=== PATIENT | female | born 1985 | race Caucasian/White ===

== ENCOUNTER 2016-11-02 11:37 | Emergency (ER) | payer BC ==
[2016-11-02 13:13] VITALS: BP 120/84
--- NOTE | 2016-11-02 13:38 | UC ---
Throat Pain/Nasal Alvin HPI - HPI Summary HPI Summary: SORE THROAT X 1 DAYS , + NASAL CONGESTION, COUGH , NO FEVER + BODY ACHES AND HEADACHES - History of Current Complaint Chief Complaint: UCRespiratory Stated Complaint: CONGESTION,HEADACHE Time Seen by Provider: 11/02/16 13:28 Hx Obtained From: Patient Hx Last Menstrual Period: spotting yesterday ?: No Onset/Duration: Gradual Onset, Lasting Days - 1, Still Present Severity: Moderate Cough: Nonproductive Associated Signs & Symptoms: Positive: Nasal Discharge. Negative: Sinus Discomfort, Fever, Rash - Allergies/Home Medications Allergies/Adverse Reactions: Allergies Allergy/AdvReac Type Severity Reaction Status Date / Time No Known Allergies Allergy Verified 11/02/16 13:13 Home Medications: Home Medications Acetaminophen-Guaifenesin [Comtrex Deep Chest Cold M] 1 tab PO Q6H PRN 11/02/16 [History Confirmed 11/02/16] buPROPion SR TAB* [Wellbutrin SR TAB*] 150 mg PO DAILY 11/02/16 [History Confirmed 11/02/16] PMH/Surg Hx/FS Hx/Imm Hx Endocrine History Of: Denies: Diabetes, Thyroid Disease, Hyperthyroidism, Hypothyroidism, Dyslipidemia Cardiovascular History Of: Denies: Cardiac Disorders, Hypertension, Pacemaker/ICD, Myocardial Infarction , Congestive Heart Failure, Atrial Fibrillation, Deep Vein Thrombosis, Bleeding Disorders Respiratory History Of: Denies: COPD, Asthma GI/ History Of: Denies: Gastroesophageal Reflux, Ulcer, Gastrointestinal Bleed, Gall Bladder Disease, Kidney Stones, Diverticulitis, Renal Disease, Urosepsis Neurological History Of: Denies: TIA, CVA, Dementia, Seizures, Migraine Psychological History Of: Denies: Anxiety, Depression, Bipolar Disorder, Schizophrenia, Post Traumatic Stress Disorder Cancer History Of: Denies: Lung Cancer, Colorectal Cancer, Breast Cancer, Prostate Cancer, Cervical Cancer Other History Of: Negative For: HIV, Hepatitis B, Hepatitis C - Surgical History Surgical History: Yes Surgery Procedure, Year, and Place: ovarian cyst- hemorragic- 05/2012. laparotomy- 2008. [facility]- 2002. tonsilectomy. tubal ligation and ablation - Family History Known Family History: Positive: None Negative: Diabetes, Other - NO CONNECTIVE TISSUE DISORDER/JOINT LAXITY - Social History Alcohol Use: None Substance Use Type: None Smoking Status (MU): Light Every Day Tobacco Smoker Type: Cigarettes Amount Used/How Often: 2 CIGS DAILY Length of Time of Smoking/Using Tobacco: 3 yrs Have You Smoked in the Last Year: Yes Household Exposure Type: Cigarettes - Immunization History Most Recent Tetanus Shot: unknown Hx Tetanus, Diphtheria Vaccination: - up dated 1-2 years ago Review of Systems Constitutional: Negative Skin: Negative Eyes: Negative ENT: Sore Throat, Nasal Discharge Respiratory: Cough Cardiovascular: Negative Gastrointestinal: Negative All Other Systems Reviewed And Are Negative: Yes Physical Exam Triage Information Reviewed: Yes Appearance: Well-Appearing, No Pain Distress, Well-Nourished Vital Signs: Initial Vital Signs Temp 98.9 F 11/02/16 13:08 Pulse 86 11/02/16 13:08 Resp 15 11/02/16 13:08 BP 120/84 11/02/16 13:08 Pulse Ox 99 11/02/16 13:08 Vital Signs Reviewed: Yes Eye Exam: Normal Eyes: Positive: Conjunctiva Clear ENT: Positive: Normal ENT inspection, Hearing grossly normal, Pharynx normal, Nasal congestion, Nasal drainage, TMs normal Neck: Positive: Supple, Nontender, No Lymphadenopathy Respiratory: Positive: Chest non-tender, Lungs clear, Normal breath sounds, No respiratory distress Cardiovascular: Positive: RRR, No Murmur, Pulses Normal Abdominal Exam: Normal Throat Pain/Nasal Course/Dx - Differential Dx/Diagnosis Provider Diagnoses: uri Discharge - Discharge Plan Condition: Stable Disposition: HOME Patient Education Materials: Upper Respiratory Infection (ED) Forms: *Work Release Referrals: Becky Richards MD [Primary Care Provider] - If Needed
== END 2016-11-02 13:37 | disposition home or self-care (01) ==
LOC: UCCORT 11:37
DX: J06.9 Acute upper respiratory infection, unspecified (principal); F17.210 Nicotine dependence, cigarettes, uncomplicated
CPT/HCPCS: 99211; G0463